=== PATIENT | male | born 1945 ===

== ENCOUNTER 2019-05-11 21:13 | Inpatient (IN) | payer MEDICARE ==
[~2019-05-11] VITALS: Ht 165.1 cm; Wt 80.4 kg
[~2019-05-11 21:13] MED LIST: Aspirin EC81 MG PO; CEPACOL SORE T1 EACH MM; Coumadin7.5 MG PO; Non-Aspirin Ex500 M1 PO; ONDA4ODT MM; Omeprazole20 M1 PO; TRAM50 PO; ZINC OXIDE EXT
[2019-05-11] MEDS ORDERED: ATHLETIC FOOT C30 GM TOP (21:29)
[2019-05-11] MEDS ORDERED: OMEP20ER PO (21:30)
[2019-05-11] MEDS ORDERED: DIBU30TO (21:30)
--- NOTE | 2019-05-12 04:49 | NUR ---
SHIFT SUMMARY REPORT RECIEVED FROM SANDRO ESCAMILLA (ED). ARRIVED TO MEDICAL FLOOR VIA STRETCHER. ORIENTED TO ROOM AND CALL SYSTEM. A/O, ABLE TO MAKE NEEDS KNOWN. COOPERATIVE WITH CARE. CALLS AND ANSWERS QUESTIONS APPROPRIATELY. NEW IV PLACED THIS AM. VERY ACTIVE (UP/DOWN IN BED). MULTIPLE REQUESTS. NO ACUTE CHANGES SINCE ARRIVAL. BED IN LOWEST POSITION. CALL LIGHT AND BELONGINGS WITHIN REACH. WCTM. REPORT TO ONCOMING RN.
[2019-05-12 05:29] LABS: BASOPHILS ABSOLUTE AUTO 0.03 K/mm3 (0.00-0.23); BASOPHILS PERCENT AUTO 0 % (0-2); EOSINOPHILS PERCENT AUTO 0 % (0-6); Hematocrit 35.9 % (37.0-53.0); Hemoglobin 11.2 g/dL (13.5-17.5); IMMATURE GRAN ABSOLUTE AUTO 0.07 K/mm3 (0.00-0.10); IMMATURE GRAN PERCENT AUTO 1 % (0-1); LYMPHOCYTES ABSOLUTE AUTO 0.58 K/mm3 (0.84-5.20); LYMPHOCYTES PERCENT AUTO 4 % (21-46); MONOCYTES ABSOLUTE AUTO 0.78 K/mm3 (0.16-1.47); MONOCYTES PERCENT AUTO 5 % (4-13); Mean Corpuscular HGB 29.5 pg (26.0-34.0); Mean Corpuscular HGB Conc 31.2 g/dL (31.5-36.5); Mean Corpuscular Volume 95 fL (80-100); Mean Platelet Volume 10.8 fL (9.1-12.4); NEUTROPHILS ABSOLUTE AUTO 13.31 K/mm3 (1.96-9.15); NEUTROPHILS PERCENT AUTO 90 % (41-73); Platelet Count 272 K/mm3 (150-400); RDW Coefficient Variation 15.8 % (11.7-14.2); White Blood Cell Count 14.77 K/mm3 (4.00-11.30)
--- NOTE | 2019-05-12 05:43 | NUR ---
[id number] PHYSICIAN CORRESPONDENCE CALLED TO ASK IF PATIENT CAN HAVE ICE CHIPS. PATIENT STATES MOUTH IS DRY. ALSO NEED TO FIND OUT IF THEY WANT PATIENT TO HAVE PO PRILOSEC OR CHANGE TO SOMETHING IV. PHONE CALL WENT STRAIGHT TO VOICEMAIL THAT HAS NOT BEEN SET UP YET.
--- NOTE | 2019-05-12 18:05 | NUR ---
SHIFT SUMMARY 74 YR OLD MALE ADMITTED FOR SMALL BOWEL OBSTRUCTION. FULL CODE. DR. BIRD CONSULTING, PUT PT ON CLEAR LIQUID DIET TODAY. HAS A COLOSTOMY IN LLQ. PT IS A 1 PERSON ASSIST W/FWW, SHAKY GAIT. FINISHED ORDERED SECOND BAG OF FLUIDS, NOW SALINE LOCKED. A&O X4. LIVES AT HOME ALONE. ROOM AIR. HX: COLON CANCER, AFIB, HYDROENCEPHALOPATHY (PER PT). ADULT BRIEFS IN PLACE, BUT PT IS AWARE WHEN HE NEEDS TO URINATE AND HAS BEEN AMBULATING TO THE BATHROOM THIS SHIFT. PLAN IS TO DC TOMORROW IF PT TOLERATES DIET AND EXPERIENCES NO FURTHER SYMPTOMS.
--- NOTE | 2019-05-13 04:20 | NUR ---
SHIFT SUMMARY: 74 Y/O MALE RESTED COMFORTABLY IN BED ALL SHIFT. COLOSTOMY PASSING LIQUID BROWN STOOL LARGE AMOUNTS, DENIES PAIN OR NAUSEA, HAPPY AND COOPERATIVE. PT BED LOW POSITION, CALL LIGHT AT SIDE.
[2019-05-13] MEDS ORDERED: GAVILAX17 GM PO (13:48)
[2019-05-13] MEDS ORDERED: Colace100 MG PO (13:48)
[2019-05-13] MEDS ORDERED: SENN187 PO (13:49)
--- NOTE | 2019-05-13 14:25 | NUR ---
DISCHARGE NOTE IV DC'D WNL. PT PROVIDED WITH HARDCOPY AND VERBAL INSTRUCTIONS FOR DISCHARGE RE: DIAGNOSES, MEDICATIONS, FOLLOW UP APPOINTMENTS. MEDICATIONS FAXED TO PREFERED PHARMACY. [facility] PROVIDED TRANSPORT FOR THIS PT. PERSONAL POSSESSIONS GATHERED. PT DRESSED HIMSELF IN PERSONAL CLOTHING. TRANSPORT ESCORTED PT TO TRANSPORT VEHICLE VIA WHEELCHAIR. PT HAD NO FURTHER QUESTIONS.
== END 2019-05-13 14:20 | disposition home or self-care (01) | DRG 390 ==
LOC: ER 21:13 → MEDS 23:07
PROVIDERS: ADMIT Hospitalist
DX: K56.609 Unspecified intestinal obstruction, unspecified as to partial versus complete obstruction (principal); I48.0 Paroxysmal atrial fibrillation; K21.9 Gastro-esophageal reflux disease without esophagitis; G89.29 Other chronic pain; M54.9 Dorsalgia, unspecified; D64.89 Other specified anemias; Z93.3 Colostomy status; Z85.038 Personal history of other malignant neoplasm of large intestine; Z87.891 Personal history of nicotine dependence
CPT/HCPCS: 36415; 85025; 96374; 99285-25; J1644; J3010; J7030

== ENCOUNTER 2022-08-03 09:08 | Emergency (ER) | payer OTHER ==
[~2022-08-03] VITALS: Ht 167.6 cm; Wt 59.0 kg
[~2022-08-03 09:08] MED LIST changes: +ATHLETIC FOOT C30 GM TOP; +Colace100 MG PO; +DIBU30TO; +GAVILAX17 GM PO; +OMEP20ER PO; +SENN187 PO
[2022-08-03] MEDS ORDERED: DONE5 PO (09:22)
[2022-08-03] MEDS ORDERED: OMEP20ER PO (09:22)
[2022-08-03 09:48] LABS: BASOPHILS ABSOLUTE AUTO 0.07 K/mm3 (0.00-0.23); BASOPHILS PERCENT AUTO 0 % (0-2); EOSINOPHILS ABSOLUTE AUTO 0.04 K/mm3 (0.00-0.68); EOSINOPHILS PERCENT AUTO 0 % (0-6); Hematocrit 34.6 % (37.0-53.0); IMMATURE GRAN ABSOLUTE AUTO 0.36 K/mm3 (0.00-0.10); IMMATURE GRAN PERCENT AUTO 2 % (0-1); LYMPHOCYTES PERCENT AUTO 9 % (21-46); MONOCYTES ABSOLUTE AUTO 1.76 K/mm3 (0.16-1.47); MONOCYTES PERCENT AUTO 10 % (4-13); Mean Corpuscular HGB 28.8 pg (26.0-34.0); Mean Corpuscular HGB Conc 31.8 g/dL (31.5-36.5); Mean Corpuscular Volume 91 fL (80-100); Mean Platelet Volume 12.1 fL (9.1-12.4); NEUTROPHILS ABSOLUTE AUTO 13.35 K/mm3 (1.96-9.15); NEUTROPHILS PERCENT AUTO 78 % (41-73); NRBC ABSOLUTE 0.06 K/mm3 (0.00-0.02); NRBC Auto 0.4 /100 WBC (0.0-0.2); Platelet Count 230 K/mm3 (150-400); RDW Coefficient Variation 16.7 % (11.7-14.2); RDW Standard Deviation 55.3 fL (35.1-46.3); Red Blood Cell Count 3.82 M/mm3 (4.30-5.90); White Blood Cell Count 17.08 K/mm3 (4.00-11.30)
[2022-08-03 09:55] LABS: Albumin, Blood 2.6 g/dL (3.4-5.0); Albumin/Globulin Ratio 0.6 (0.8-1.8); Bilirubin, Total 1.9 mg/dL (0.1-1.0); Bun/Creatinine Ratio 30.8 (12.0-20.0); Creatinine, Blood 1.2 mg/dL (0.60-1.20); Globulin, Blood 4.4 g/dL (2.2-4.0)
[2022-08-03 11:12] LABS: Source, Urine Clean Catch
[2022-08-03 11:15] LABS: Blood, Urine Neg (Neg); Glucose Qualitative, Urine Neg (Neg); Ketones, Urine 1+ (Neg); Leukocyte Esterase, Urine 1+ (Neg); Nitrite, Urine Neg (Neg); Protein, Urine 2+ (Neg); Specific Gravity, Urine 1.015 (1.003-1.022); Urobilinogen, Urine 3+ (Normal)
[2022-08-03 11:30] LABS: Bilirubin, Urine 1+ (Neg)
[2022-08-03 11:31] LABS: Appearance, Urine Clear (Clear); Color, Urine Amber (P-Yellow)
[2022-08-03 11:32] LABS: Red Blood Cells, Urine 0-2 /hpf (0-2); White Blood Cells, Urine 0-2 /hpf (0-5)
[2022-08-03 11:33] LABS: Bacteria Rare /hpf; Granular Casts 0-2 /lpf (0); Hyaline Casts 0-2 /lpf (0-2); Renal Epithelial Rare /hpf (0-Rare); Squamous Epithelial Cells Rare /hpf (Few)
--- NOTE | 2022-08-03 15:00 | NUR ---
pt anxious and history or ptsd and not wanting catheter. Struggling with conversation. positioned pt for comfort and ended discussion. [facility] and spoke with pt social media job titles states that his ex helps him and is his POA. Called her to leave a message that he is in hospital. will follow up.
[2022-08-04] MEDS ORDERED: Ativan1 MG PO (10:58)
[2022-08-04] MEDS ORDERED: ROXICODONE5 MG PO (10:58)
--- NOTE | 2022-08-04 11:18 | NUR ---
Pt still in ER unable to contact his POA. We contacted his siters adry and tito and reviewed his CT scan and diagnsosis. Reviewed his assessment pt wanting sips of water but barely able to hold cup and coughing appears he is not manging well and possible aspiration. Pt continual complains of backa nd abdominal pain. had his sister call him and held the phone up to his ear. They had a very loving and comprehensive converstaion. He was tearful and stated he was dying. His sister encouraged him to accept hospice and comfort and no extrodinary treatments. He stated he did want it to be hard on them if he did not try. They gave him affriamtion that they did not want him to suffer and he agreed to hospice. spoke with pt after phone call and he still agreed to hospice.His affect was much different after the phone call less anxious and happy to go back to retirement. Called coordinting nurse at [facility] to review case. They are glad to take him back. Completed polst, got hospice order and updated nursing and care mangers. the retirement chose [facility]. Sent with priyanka and marivel. polst sent with patient and copies made. Warned [facility] staff he might waxand wane a little until we get better control of his anexiety. He states he is always to vigilant and has not slep in ahwile.Will update [facility] staff.
== END 2022-08-04 13:25 | disposition home or self-care (01) ==
LOC: ER 09:08
PROVIDERS: Emergency Medicine
DX: C20 Malignant neoplasm of rectum (principal); E87.1 Hypo-osmolality and hyponatremia; D72.829 Elevated white blood cell count, unspecified; D64.9 Anemia, unspecified; E46 Unspecified protein-calorie malnutrition; I48.91 Unspecified atrial fibrillation; K21.9 Gastro-esophageal reflux disease without esophagitis; Z79.899 Other long term (current) drug therapy
CPT/HCPCS: 74177; 80053; 81001; 85025; 96374; 96375; 99283-25; J1170; J1200; J2405; Q9967